=== PATIENT | female | born 1990 ===

== ENCOUNTER 2016-11-01 15:24 | Emergency (ER) | payer OTHER ==
[2016-11-01 15:34] VITALS: BP 135/88; PULSE 86; RESP 16; O2SAT 100
[2016-11-01] MEDS ORDERED: DiphenhydrAMINE 50 mg/ml Inj IVP STA (15:48)
[2016-11-01] MEDS ORDERED: Piperacillin/Tazobact 3.375 GM in Sodium Chloride 0.9% 100 ML IV STA (15:48)
--- NOTE | 2016-11-01 15:49 | ED PDOC ---
HPI: Allergic Reaction Time Seen by Provider: 11/01/16 15:31 Chief Complaint (Nursing): Allergic Reaction Chief Complaint (Provider): Facial swelling History Per: Patient Additional Complaint(s): Pt. complains of "possible infection to her face, started last Tuesday with swelling on her right lymph node, right eye is shut closed and with itching last night". Denies using anything different on the face. Past Medical History Reviewed: Nursing Documentation, Vital Signs Vital Signs: Last Vital Signs Temp 97.5 F L 11/01/16 15:29 Pulse 86 11/01/16 15:29 Resp 16 11/01/16 15:29 BP 135/88 11/01/16 15:29 Pulse Ox 100 11/01/16 15:29 - Medical History PMH: No Chronic Diseases - Surgical History Surgical History: No Surg Hx - Family History Family History: States: No Known Family Hx - Living Arrangements Living Arrangements: With Family - Social History Current smoker - smoking cessation education provided: No Alcohol: None Drugs: Denies - Home Medications Home Medications: Ambulatory Orders Medication Instructions Recorded Amoxicillin/Clavulanate [Augmentin 1 tab PO BID #14 tab 11/06/16 875 MG-125 MG] valACYclovir [Valtrex] 1 gm PO BID #14 tab 11/06/16 - Allergies Allergies/Adverse Reactions: Allergies Allergy/AdvReac Type Severity Reaction Status Date / Time No Known Allergies Allergy Verified 11/01/16 15:28 Review of Systems ROS Statement: Except As Marked, All Systems Reviewed And Found Negative Eyes: Positive for: Eyelid Inflammation, Redness Physical Exam - Reviewed Nursing Documentation Reviewed: Yes Vital Signs Reviewed: Yes - Physical Exam Appears: Positive for: Well, Non-toxic, No Acute Distress Head Exam: Positive for: ATRAUMATIC, NORMAL INSPECTION, NORMOCEPHALIC Skin: Positive for: Normal Color, Warm, DRY Eye Exam: Positive for: EOMI, PERRL, Other (Right upper eyelid with erythema and edema. (+) papule noted below eyebrow) ENT: Positive for: Normal ENT Inspection Neck: Positive for: Normal, Painless ROM Cardiovascular/Chest: Positive for: Regular Rate, Rhythm Respiratory: Positive for: CNT, Normal Breath Sounds Gastrointestinal/Abdominal: Positive for: Normal Exam, Bowel Sounds, Soft Back: Positive for: Normal Inspection Extremity: Positive for: Normal ROM Neurologic/Psych: Positive for: Alert, Oriented - Laboratory Results Result Diagrams: 11/01/16 18:10 11/01/16 17:48 - ECG O2 Sat by Pulse Oximetry: 100 - Progress ED Course And Treament: IV access established and treatment initiated with Benadryl, Solumedrol and Vanco/Zosyn labs resulted and reviewed with Pt who demonstrated full understanding Pts eye appears less swollen on re-eval. Stable for discharge with trial on outpt therapy at this time. advised to follow up with PMD, return to ED with any concerns. Disposition - Clinical Impression Clinical Impression: Allergic reaction, Cellulitis - Patient ED Disposition Is Patient to be Admitted: No - Disposition Disposition: Routine/Home Disposition Time: 16:45 Condition: STABLE Instructions: Cellulitis (ED), General Allergic Reaction (ED) Forms: [employer] ([place])
[2016-11-01] MEDS ORDERED: DiphenhydrAMINE 50 mg/ml Inj ONE (15:55)
[2016-11-01] MEDS ORDERED: Piperacillin/Tazobact 3.375 gm Inj IVPB ONE (15:56)
[2016-11-01] MEDS ORDERED: Vancomycin 1 g Inj ONE (15:56)
[2016-11-01 18:06] LABS: ALB/GLOB RATIO 1.4 (1.0-2.1); ALKALINE PHOSPHATASE 48 U/L (38-126); ALT/SGPT 23 U/L (9-52); AST/SGOT 17 U/L (14-36); BILIRUBIN,TOTAL 0.3 mg/dl (0.2-1.3); BLOOD UREA NITROGEN 8 mg/dl (7-17); CALCIUM 9.1 mg/dL (8.4-10.2); CARBON DIOXIDE 26 mmol/L (22-30); CHLORIDE 103 mmol/L (98-107); GFR AFRICAN-AMERICAN > 60; GLUCOSE,RANDOM 116 mg/dL (65-105); POTASSIUM 3.7 MMOL/L (3.6-5.0); SODIUM 138 mmol/l (132-148); TOTAL PROTEIN 6.6 G/DL (6.3-8.2)
[2016-11-01 19:05] LABS: BASO % 0.5 % (0.0-2.0); EOS # 0.1 K/uL (0.0-0.7); EOS % 1.9 % (0.0-4.0); HEMATOCRIT 36.1 % (34.0-47.0); LYMPH # 1.6 K/uL (1.0-4.3); LYMPH % 24.4 % (20.0-40.0); MEAN CELL VOLUME 95.2 fl (81.0-99.0); MEAN CORPUSCULAR HGB CONC 33.7 g/dL (33.0-37.0); MEAN PLATELET VOLUME 10.9 fl (7.2-11.7); MONO # 0.6 K/uL (0.0-0.8); NEUT # 4.2 K/uL (1.8-7.0); NEUT % 64.2 % (50.0-75.0); NRBC % 0.1 % (0.0-0.0); RED CELL DISTRIBUTION WIDTH 13.8 % (11.5-14.5); WHITE BLOOD COUNT 6.6 K/uL (4.8-10.8)
[2016-11-01 19:32] VITALS: TEMP 98.6
== END 2016-11-01 19:51 | disposition home or self-care (01) ==
LOC: H.ER 15:24
DX: T78.40XA Allergy, unspecified, initial encounter (principal); L03.90 Cellulitis, unspecified
CPT/HCPCS: 80053; 85025; 87040; 96374; 96375; 99282; J1200; J2543; J2930

== ENCOUNTER 2016-11-02 10:41 | Inpatient (IN) | payer OTHER ==
[2016-11-02] MEDS ORDERED: DiphenhydrAMINE 50 mg/ml Inj IV STA (11:30)
--- NOTE | 2016-11-02 11:43 | ED PDOC ---
HPI: Eye Injury/Pain Time Seen by Provider: 11/02/16 11:15 Chief Complaint (Nursing): Eye Problem Chief Complaint (Provider): Eye brow pain and swelling History Per: Patient History/Exam Limitations: no limitations Onset/Duration Of Symptoms: Days (Sat) Current Symptoms Are (Timing): Still Present Additional Complaint(s): Pt. pimple on eye lid right on Tuesday. It then got swollen to that area and around eye. No pain inside eye. Pain around swelling and itching. Pt. came to the ED yesterday for it and had blood work and antibiotics/steroids/ benadryl. Sent home on meds but did not start it yet. No numbness, tingles, weakness, dizziness, vision changes. Able to move eyes with no issues. No dizziness or headache. No neck pain. Past Medical History Reviewed: Nursing Documentation, Vital Signs Vital Signs: Last Vital Signs Temp 97 F L 11/02/16 11:00 Pulse 52 L 11/02/16 11:00 Resp 16 11/02/16 11:00 BP 132/82 11/02/16 11:00 Pulse Ox 99 11/02/16 11:00 - Medical History PMH: No Chronic Diseases - Surgical History Surgical History: No Surg Hx - Family History Family History: States: Unknown Family Hx - Living Arrangements Living Arrangements: With Family - Immunization History Hx Tetanus Toxoid Vaccination: No Hx Influenza Vaccination: No Hx Pneumococcal Vaccination: No - Home Medications Home Medications: Ambulatory Orders Medication Instructions Recorded No Known Home Med 11/02/16 - Allergies Allergies/Adverse Reactions: Allergies Allergy/AdvReac Type Severity Reaction Status Date / Time No Known Allergies Allergy Verified 11/01/16 15:28 Review of Systems ROS Statement: Except As Marked, All Systems Reviewed And Found Negative Eyes: Positive for: Pain, Eyelid Inflammation. Negative for: Vision Change, Conjunctivae Inflammation, Redness Skin: Positive for: Rash Physical Exam - Reviewed Nursing Documentation Reviewed: Yes Vital Signs Reviewed: Yes - Physical Exam Appears: Positive for: Non-toxic, No Acute Distress Head Exam: Positive for: ATRAUMATIC, NORMAL INSPECTION, NORMOCEPHALIC Skin: Positive for: Normal Color, Warm, DRY Eye Exam: Positive for: EOMI, PERRL, Periorbital swelling, Periorbital tenderness, Other (R eyebrow and R temporal area with fes vesicle and some crusting. Mild tender; Upper eye lid swelling. Trace erythema of R periorbital. R eye with no fluorescein uptake.) ENT: Positive for: Normal ENT Inspection Neck: Positive for: Normal, Painless ROM Cardiovascular/Chest: Positive for: Regular Rate, Rhythm Respiratory: Positive for: CNT, Normal Breath Sounds Gastrointestinal/Abdominal: Positive for: Normal Exam, Bowel Sounds, Soft. Negative for: Tenderness Back: Positive for: Normal Inspection. Negative for: L CVA Tenderness, R CVA Tenderness Extremity: Positive for: Normal ROM. Negative for: Tenderness, Pedal Edema Neurologic/Psych: Positive for: Alert, inspector watch train II-XII, Oriented. Negative for: Motor/Sensory Deficits, Facial Droop - Laboratory Results Result Diagrams: 11/02/16 12:20 11/02/16 12:20 Interpretation Of Abn Labs: no acute - ECG O2 Sat by Pulse Oximetry: 99 Pulse Ox Interpretation: Normal - Progress ED Course And Treament: IMPRESSION: 1. Right preseptal orbital cellulitis. No evidence of postseptal cellulitis for subperiosteal abscess. 2. Fluid in the frontal sinuses could represent acute sinusitis in the appropriate clinical setting. 3. Enlarged right lingual, submandibular, jugular chain and posterior triangle lymph nodes are likely reactive in etiology. 1535: Stable. AAOx3. Spoke with Skyler. Will admit. Antibacterial and antiviral given. Optho paged. Visual acuity done, not corrected, similar both sides. 1606: Stable. Spoke with Dr. Sanders. Made aware of presentation, clinical, and findings. Wants pt. to get acyclovir and antibiotics. No additional tx. Disposition - Clinical Impression Clinical Impression: Preseptal cellulitis, Herpes zoster - Patient ED Disposition Is Patient to be Admitted: Yes Counseled Patient/Family Regarding: Studies Performed, Diagnosis - Disposition Disposition Time: 15:52 Condition: FAIR - Pt Status Changed To: Hospital Disposition Of: Inpatient - Admit Certification Admit to Inpatient:: After my assessment, the patient will require hospitalization for at least two midnights. This is because of the severity of symptoms shown, intensity of services needed, and/or the medical risk in this patient being treated as an outpatient. - POA Present On Arrival: None
[2016-11-02] MEDS ORDERED: Tetracaine 0.5% Ophth 2 ML BOTTLE ONE (11:58)
[2016-11-02 12:32] LABS: VENOUS BLOOD GAS BASE EXCESS 0.5 mmol/L (0.0-2.0); VENOUS BLOOD GAS PCO2 44 mmHg (40-60); VENOUS BLOOD PH 7.38 (7.32-7.43)
[2016-11-02] MEDS ORDERED: DiphenhydrAMINE 50 mg/ml Inj ONE (12:33)
[2016-11-02 12:37] LABS: BASO % 0.7 % (0.0-2.0); EOS # 0.1 K/uL (0.0-0.7); HEMATOCRIT 38.4 % (34.0-47.0); LYMPH # 1.7 K/uL (1.0-4.3); LYMPH % 23.9 % (20.0-40.0); MEAN CORPUSCULAR HGB CONC 33.3 g/dL (33.0-37.0); MEAN PLATELET VOLUME 10.2 fl (7.2-11.7); MONO # 0.6 K/uL (0.0-0.8); MONO % 9.2 % (0.0-10.0); NEUT # 4.6 K/uL (1.8-7.0); NEUT % 65.2 % (50.0-75.0); NRBC % 0.1 % (0.0-0.0); RED CELL DISTRIBUTION WIDTH 14.1 % (11.5-14.5)
[2016-11-02 12:42] LABS: RBC URINE 6 /hpf (0-3); URINE BACTERIA RARE (<OCC); URINE BILIRUBIN NEGATIVE (NEGATIVE); URINE BLOOD MODERATE (NEGATIVE); URINE COLOR YELLOW (YELLOW); URINE GLUCOSE (UA) NEG (Normal); URINE KETONE NEGATIVE (NEGATIVE); URINE LEUKOCYTE ESTERASE NEG Leu/uL (Negative); URINE PROTEIN 30 mg/dL (NEGATIVE); URINE UROBILINOGEN 0.2-1.0 mg/dL (0.2-1.0); WBC URINE 4 /hpf (0-5)
[2016-11-02] MEDS: Sodium Chloride 0.9% 1,000 ML IV SCH (12:42)
[2016-11-02 12:57] LABS: ALB/GLOB RATIO 1.4 (1.0-2.1); ALKALINE PHOSPHATASE 52 U/L (38-126); ALT/SGPT 33 U/L (9-52); AST/SGOT 17 U/L (14-36); BILIRUBIN,TOTAL 0.3 mg/dl (0.2-1.3); BLOOD UREA NITROGEN 5 mg/dl (7-17); CALCIUM 9.1 mg/dL (8.4-10.2); CARBON DIOXIDE 23 mmol/L (22-30); CHLORIDE 106 mmol/L (98-107); GFR AFRICAN-AMERICAN > 60; GLUCOSE,RANDOM 88 mg/dL (65-105); PHOSPHOROUS 2.6 mg/dl (2.5-4.5); POTASSIUM 3.8 MMOL/L (3.6-5.0); SODIUM 139 mmol/l (132-148); TOTAL PROTEIN 6.9 G/DL (6.3-8.2)
[2016-11-02 13:02] LABS: PARTIAL THROMBOPLASTIN TIME 27.2 Seconds (25.6-37.1)
[2016-11-02] MEDS ORDERED: Sodium Chloride 0.9% 50 ML IV ONE (13:55)
[2016-11-02] MEDS ORDERED: Iohexol 300 100 ML IJ ONE (13:55)
--- NOTE | 2016-11-02 15:19 | CT ---
PROCEDURE: CT ORBITS WITH CONTRAST. HISTORY: Evaluate orbital cellulitis COMPARISON: None available. TECHNIQUE: Following administration of intravenous iodinated contrast, axial CT images of the orbits were obtained. Coronal and sagittal reformats were generated. Intravenous contrast dose: 95 mL Omnipaque 300 Radiation dose: Total exam DLP = 789.82 mGy-cm. This CT exam was performed using one or more of the following dose reduction techniques: Automated exposure control, adjustment of the mA and/or kV according to patient size, and/or use of iterative reconstruction technique. FINDINGS: RIGHT ORBIT: RIGHT BONY ORBIT: Normal. RIGHT INTRAORBITAL STRUCTURES: Globe: Normal. Extraocular muscles: Normal. Post septal space: There is no soft tissue in the postseptal space. There is no evidence of subperiosteal abscess. Optic Nerve: Normal. Lacrimal Apparatus: Normal. RIGHT PRESEPTAL SOFT TISSUES: There is moderate right preseptal soft tissue thickening. LEFT ORBIT: LEFT BONY ORBIT: Normal. LEFT INTRAORBITAL STRUCTURES: Globe: Normal. Extraocular muscles: Normal. Post septal space: Normal. Optic Nerve: Normal. Lacrimal Apparatus: Normal. LEFT PRESEPTAL SOFT TISSUES: Normal. OTHER: There is fluid in the inferior frontal sinuses and mild mucoperiosteal thickening in the ethmoid air cells. The maxillary and sphenoid sinuses are clear. There are enlarged right lingual, submandibular, upper jugular chain and posterior triangle lymph nodes. IMPRESSION: 1. Right preseptal orbital cellulitis. No evidence of postseptal cellulitis for subperiosteal abscess. 2. Fluid in the frontal sinuses could represent acute sinusitis in the appropriate clinical setting. 3. Enlarged right lingual, submandibular, jugular chain and posterior triangle lymph nodes are likely reactive in etiology.
[2016-11-02] MEDS ORDERED: Piperacillin/Tazobact 3.375 GM in Sodium Chloride 0.9% 100 ML IV STA (15:37)
[2016-11-02] MEDS ORDERED: Acyclovir 500 MG in Sodium Chloride 0.9% 100 ML IV STA (15:42)
[2016-11-02] MEDS ORDERED: Piperacillin/Tazobact 3.375 gm Inj IVPB ONE (16:12)
[2016-11-02] MEDS ORDERED: Vancomycin 1 g Inj ONE (16:12)
[2016-11-02] MEDS: Acyclovir 500 MG in Sodium Chloride 0.9% 100 ML IVPB SCH (18:35)
[2016-11-02] MEDS: Piperacillin/Tazobact 3.375 GM in Sodium Chloride 0.9% 100 ML IVPB SCH (21:19)
[2016-11-03] MEDS: Acyclovir 500 MG in Sodium Chloride 0.9% 100 ML IVPB SCH ×3 (01:14→18:27)
[2016-11-03] MEDS: Piperacillin/Tazobact 3.375 GM in Sodium Chloride 0.9% 100 ML IVPB SCH ×4 (04:28→21:22)
[2016-11-03 06:39] LABS: BASO % 0.1 % (0.0-2.0); HEMATOCRIT 35.4 % (34.0-47.0); LYMPH # 1.5 K/uL (1.0-4.3); LYMPH % 16.4 % (20.0-40.0); MEAN CELL VOLUME 94.9 fl (81.0-99.0); MEAN CORPUSCULAR HEMOGLOBIN 31.9 pg (27.0-31.0); MEAN CORPUSCULAR HGB CONC 33.6 g/dL (33.0-37.0); MEAN PLATELET VOLUME 10.7 fl (7.2-11.7); MONO # 0.5 K/uL (0.0-0.8); MONO % 6.1 % (0.0-10.0); NEUT # 6.9 K/uL (1.8-7.0); NEUT % 77.4 % (50.0-75.0); RED CELL DISTRIBUTION WIDTH 13.6 % (11.5-14.5); WHITE BLOOD COUNT 8.9 K/uL (4.8-10.8)
[2016-11-03 06:42] LABS: ALB/GLOB RATIO 1.2 (1.0-2.1); ALKALINE PHOSPHATASE 50 U/L (38-126); ALT/SGPT 31 U/L (9-52); AST/SGOT 21 U/L (14-36); BILIRUBIN,TOTAL 0.4 mg/dl (0.2-1.3); BLOOD UREA NITROGEN 5 mg/dl (7-17); CALCIUM 8.9 mg/dL (8.4-10.2); CARBON DIOXIDE 20 mmol/L (22-30); CHLORIDE 107 mmol/L (98-107); GFR AFRICAN-AMERICAN > 60; GLUCOSE,RANDOM 90 mg/dL (65-105); POTASSIUM 3.7 MMOL/L (3.6-5.0); SODIUM 138 mmol/l (132-148); TOTAL PROTEIN 6.4 G/DL (6.3-8.2)
--- NOTE | 2016-11-03 08:19 | CP.PCM.HP ---
History of Present Illness - History of Present Illness History of Present Illness: pt admitte dfor r eye preseptal cellulitis and possible herpes zoster to r eye. started 2 days ago had r eye swelling and pain. started on med at that time in ER but came abck w/ herpatic like lesions. no f/c, n/v/d. bw noted. had chicken pox as child. Present on Admission - Present on Admission Any Indicators Present on Admission: No Review of Systems - EENT Eyes: As Per HPI - Integumentary Integumentary: As Per HPI Past Patient History - Infectious Disease Hx of Infectious Diseases: None - Past Social History Smoking Status: Never Smoked - CARDIAC Hx Cardiac Disorders: No - PULMONARY Hx Respiratory Disorders: No - NEUROLOGICAL Hx Neurological Disorder: No - HEENT Hx HEENT Problems: No - RENAL Hx Chronic Kidney Disease: No - ENDOCRINE/METABOLIC Hx Endocrine Disorders: No - HEMATOLOGICAL/ONCOLOGICAL Hx Blood Disorders: No - INTEGUMENTARY Hx Dermatological Problems: No - MUSCULOSKELETAL/RHEUMATOLOGICAL Hx Musculoskeletal Disorders: No Hx Falls: No - GENITOURINARY/GYNECOLOGICAL Hx Genitourinary Disorders: No - PSYCHIATRIC Hx Psychophysiologic Disorder: No - SURGICAL HISTORY Hx Section: Yes Other/Comment: strep throat in 03/2016 - ANESTHESIA Hx Anesthesia: No Meds Allergies/Adverse Reactions: Allergies Allergy/AdvReac Type Severity Reaction Status Date / Time No Known Allergies Allergy Verified 11/01/16 15:28 Physical Exam - Constitutional Appears: Well, Non-toxic, No Acute Distress - Head Exam Head Exam: ATRAUMATIC, NORMAL INSPECTION, NORMOCEPHALIC - Eye Exam Eye Exam: EOMI, Normal appearance, PERRL Pupil Exam: NORMAL ACCOMODATION, PERRL Additional comments: r eye upper and lower swelling, herpatic lesion noted to the upper eyelid - ENT Exam ENT Exam: Mucous Membranes Moist, Normal Exam - Neck Exam Neck exam: Positive for: Normal Inspection - Respiratory Exam Respiratory Exam: Clear to Auscultation Bilateral, NORMAL BREATHING PATTERN - Cardiovascular Exam Cardiovascular Exam: REGULAR RHYTHM, RRR, +S1, +S2 - GI/Abdominal Exam GI & Abdominal Exam: Normal Bowel Sounds, Soft. absent: Tenderness - Extremities Exam Extremities exam: Positive for: full ROM, normal capillary refill, normal inspection, pedal pulses present - Back Exam Back exam: NORMAL INSPECTION - Neurological Exam Neurological exam: Alert, CN II-XII Intact, Normal Gait, Oriented x3, Reflexes Normal - Psychiatric Exam Psychiatric exam: Normal Affect, Normal Mood - Skin Skin Exam: Dry, Intact, Normal Color, Warm Results - Vital Signs Recent Vital Signs: Last Vital Signs Temp 99 F 11/03/16 00:47 Pulse 79 11/03/16 00:47 Resp 18 11/03/16 00:47 BP 118/65 11/03/16 00:47 Pulse Ox 99 11/03/16 00:47 - Labs Result Diagrams: 11/03/16 05:30 11/03/16 05:30 Labs: Laboratory Results - last 24 hr 11/03/16 11/03/16 05:30 05:30 WBC 8.9 RBC 3.73 L Hgb 11.9 L Hct 35.4 MCV 94.9 MCH 31.9 H MCHC 33.6 RDW 13.6 Plt Count 191 MPV 10.7 Neut % (Auto) 77.4 H Lymph % (Auto) 16.4 L [place] % (Auto) 6.1 Eos % (Auto) 0.0 Baso % (Auto) 0.1 Neut # 6.9 Lymph # 1.5 [place] # 0.5 Eos # 0.0 Baso # 0.0 Sodium 138 Potassium 3.7 Chloride 107 Carbon Dioxide 20 L Anion Gap 15 BUN 5 L Creatinine 0.5 L Est GFR ( Amer) > 60 Est GFR (Non-Af Amer) > 60 Random Glucose 90 Calcium 8.9 Total Bilirubin 0.4 AST 21 ALT 31 Alkaline Phosphatase 50 Total Protein 6.4 Albumin 3.6 Globulin 2.9 Albumin/Globulin Ratio 1.2 Assessment & Plan (1) DVT prophylaxis Assessment and Plan: scd rocio ehose ambulation Status: Acute (2) Herpes zoster Assessment and Plan: acyclovir opthalmology consult Status: Acute (3) Preseptal cellulitis Assessment and Plan: holley brannon opthalmology pain control fever control Status: Acute Decision To Admit - Pt Status Changed To: Hospital Disposition Of: Inpatient - Admit Certification Admit to Inpatient:: After my assessment, the patient will require hospitalization for at least two midnights. This is because of the severity of symptoms shown, intensity of services needed, and/or the medical risk in this patient being treated as an outpatient. - . Bed Request Type: Med/Surg Admitting Physician: Dominique Guardado
--- NOTE | 2016-11-03 14:04 | CP.PCM.CON ---
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 which started as a pimple on eyebrow and now has major preseptal orbital cellulitis as well as skin lesions which are vesicular on R eyebrow as well as new lesions on left eyebrow , trunk and left arm no PMH, Travel, hx or sig FH started on empiric IV Vanco/ zosyn and acyclovir Review of Systems - Review of Systems All systems: reviewed and no additional remarkable complaints except - Constitutional Constitutional: absent: As Per HPI, Anorexia, Chills, Daytime Sleepiness, Excessive Sweating, Fatigue, Fever, Frequent Falls, Headache, Increased Appetite , Lethargy, Malaise, Night Sweats, Snoring, Sleep Apnea, Weight Gain, Weight Loss, Weakness, Other - EENT Eyes: As Per HPI Ears: absent: As Per HPI, Decreased Hearing, Ear Discharge, Ear Pain, Tinnitus, Abnormal Hearing, Disequilibrium, Dizziness, Other Nose/Mouth/Throat: absent: As Per HPI, Epistaxis, Nasal Congestion, Nasal Discharge, Nasal Obstruction, Nasal Trauma, Nose Pain, Post Nasal Drip, Sinus Pain, Sinus Pressure, Bleeding Gums, Change in Voice, Dental Pain, Dry Mouth, Dysphagia, Halitosis, Hoarsness, Lip Swelling, Mouth Lesions, Mouth Pain, Odynophagia, Sore Throat, Throat Swelling, Tongue Swelling, Facial Pain, Neck Pain, Neck Mass, Other - Breasts Breasts: absent: As Per HPI, Change in Shape, Mass, Pain, Nipple Discharge, Nipple Inversion, Skin Changes, Swelling, Other - Cardiovascular Cardiovascular: absent: As Per HPI, Acrocyanosis, Chest Pain, Chest Pain at Rest , Chest Pain with Activity, Claudication, Diaphoresis, Dyspnea, Dyspnea on Exertion, Edema, Irregular Heart Rhythm, Pain Radiating to Arm/Neck/Jaw, Leg Edema, Leg Ulcers, Lightheadedness, Orthopnea, Palpitations, Paroxysmal Nocturnal Dyspnea, Pedal Edema, Radiating Pain, Rapid Heart Rate, Slow Heart Rate, Syncope, Other - Respiratory Respiratory: absent: As Per HPI, Cough, Dyspnea, Hemoptysis, Dyspnea on Exertion , Wheezing, Snoring, Stridor, Pain on Inspiration, Chest Congestion, Excessive Mucous Production, Change in Mucous Color, Pain with Coughing, Other - Gastrointestinal Gastrointestinal: absent: As Per HPI, Abdominal Pain, Belching, Bloating, Change in Bowel Habits, Change in Stool Character, Coffee Ground Emesis, Constipation, Cramping, Diarrhea, Dyspepsia, Dysphagia, Early Satiety, Excessive Flatus, Fecal Incontinence, Heartburn, Hematemesis, Hematochezia, Loose Stools, Melena, Nausea, Odynophagia, Temesmus, Vomiting, Other - Genitourinary Genitourinary: absent: As Per HPI, Change in Urinary Stream, Difficulty Urinating, Dysuria, Flank Pain, Hematuria, Pyuria, Nocturia, Urinary Incontinence, Urinary Frequency, Urinary Hesitance, Urinary Urgency, Voiding Freq/Small Amts, Freq UTI, Hx Renal/Bladder Calculi, Hx /Renal Surgery, Bladder Distension, Other - Reproductive: Female Reproductive:Female: absent: As Per HPI, Amenorrhea, Amenorrhea/ Control, Currently Menstual, Cycle <21 Days, Cycle >35 Days, Cycle Variable, Menses 1-7 Days, Menses >/= 8 Days, Menses Variable, Cycle > 4 Weeks Between, No Menses for 6 Months, Heavy Menses, Light Menses, Normal Menses, Spotting Between Cycles , S/P Hysterectomy, Menopausal, Post Menopausal, Premenarche, Abnormal Vaginal Bleeding, Dysmenorrhea, Dyspareunia, Genital Lesions, Genital Pruritis, Pelvic Pain, Prolapse Symptoms, Sexual Dysfunction, Vaginal Discharge, Vaginal Dryness , Vaginal Odor, Vaginal Pruritis, Other - Menstruation Menstruation: absent: As Per HPI, Amenorrhea, Amenorrhea/ Control, Currently Menstual, Cycle <21 Days, Cycle >35 Days, Cycle Variable, Menses 1-7 Days, Menses >/= 8 Days, Menses Variable, Cycle > 4 Weeks Between, No Menses for 6 Months, Heavy Menses, Light Menses, Normal Menses, Spotting Between Cycles , S/P Hysterectomy, Menopausal, Post Menopausal, Premenarche, Abnormal Vaginal Bleeding, Dysmenorrhea, Other - Musculoskeletal Musculoskeletal: absent: As Per HPI, Abnormal Gait, Arthralgias, Atrophy, Back Pain, Deformity, Joint Swelling, Limited Range of Motion, Loss of Height, Muscle Cramps, Muscle Weakness, Myalgias, Neck Pain, Numbness, Radiating Pain into Limb, Stiffness, Tingling, Other - Integumentary Integumentary: As Per HPI Past Patient History - Infectious Disease Hx of Infectious Diseases: None - Past Social History Smoking Status: Never Smoked - CARDIAC Hx Cardiac Disorders: No - PULMONARY Hx Respiratory Disorders: No - NEUROLOGICAL Hx Neurological Disorder: No - HEENT Hx HEENT Problems: No - RENAL Hx Chronic Kidney Disease: No - ENDOCRINE/METABOLIC Hx Endocrine Disorders: No - HEMATOLOGICAL/ONCOLOGICAL Hx Blood Disorders: No - INTEGUMENTARY Hx Dermatological Problems: No - MUSCULOSKELETAL/RHEUMATOLOGICAL Hx Musculoskeletal Disorders: No Hx Falls: No - GENITOURINARY/GYNECOLOGICAL Hx Genitourinary Disorders: No - PSYCHIATRIC Hx Psychophysiologic Disorder: No - SURGICAL HISTORY Hx Section: Yes Other/Comment: strep throat in 03/2016 - ANESTHESIA Hx Anesthesia: No Meds Allergies/Adverse Reactions: Allergies Allergy/AdvReac Type Severity Reaction Status Date / Time No Known Allergies Allergy Verified 11/01/16 15:28 - Medications Medications: Current Medications Diphenhydramine HCl (Benadryl) 50 mg IVP Q6 PRN PRN Reason: itchines Sodium Chloride (Sodium Chloride 0.9%) 1,000 mls @ 1,000 mls/hr IV .Q1H [facility] Last Admin: 11/02/16 12:42 Dose: 1,000 mls/hr Vancomycin HCl 1 gm/ Sodium (Chloride) 250 mls @ 166.667 mls/hr IVPB Q12@0400, 1600 [facility] Last Admin: 11/03/16 04:29 Dose: 166.667 mls/hr Piperacillin Sod/Tazobactam (Sod 3.375 gm/ Sodium Chloride) 100 mls @ 100 mls/ hr IVPB Q6 [facility] Last Admin: 11/03/16 09:59 Dose: 100 mls/hr Acyclovir 500 mg/ Sodium (Chloride) 100 mls @ 100 mls/hr IVPB Q8 [facility] Last Admin: 11/03/16 12:00 Dose: 100 mls/hr Ketorolac Tromethamine (Toradol) 30 mg IVP Q6 PRN PRN Reason: pain 6-10 Last Admin: 11/02/16 18:35 Dose: 30 mg Neomycin/Polymyxin/Dexamethasone (Maxitrol Opth Oint) 1 applic OD QID [facility] Physical Exam - Constitutional Appears: Non-toxic - Head Exam Head Exam: NORMOCEPHALIC - Eye Exam Eye Exam: Periorbital swelling Pupil Exam: PERRL Additional comments: massive swelling upper eyelids bilat vesicles near right eyebrow and one near left - ENT Exam ENT Exam: Mucous Membranes Dry, Normal External Ear Exam - Neck Exam Neck exam: Negative for: Lymphadenopathy - Respiratory Exam Respiratory Exam: Decreased Breath Sounds - Cardiovascular Exam Cardiovascular Exam: REGULAR RHYTHM - GI/Abdominal Exam GI & Abdominal Exam: Diminished Bowel Sounds, Soft - Rectal Exam Rectal Exam: Deferred - Exam Exam: NORMAL INSPECTION - Extremities Exam Extremities exam: Negative for: pedal edema - Back Exam Back exam: absent: CVA tenderness (L), CVA tenderness (R) - Neurological Exam Neurological exam: Alert, CN II-XII Intact, Oriented x3, Reflexes Normal - Psychiatric Exam Psychiatric exam: Normal Mood - Skin Skin Exam: Rash Results - Vital Signs Recent Vital Signs: Last Vital Signs Temp 98.4 F 11/03/16 08:29 Pulse 66 11/03/16 08:29 Resp 20 11/03/16 08:29 BP 118/70 11/03/16 08:29 Pulse Ox 99 11/03/16 08:29 - Labs Result Diagrams: 11/03/16 05:30 11/03/16 05:30 Labs: Laboratory Results - last 24 hr 11/03/16 11/03/16 05:30 05:30 WBC 8.9 RBC 3.73 L Hgb 11.9 L Hct 35.4 MCV 94.9 MCH 31.9 H MCHC 33.6 RDW 13.6 Plt Count 191 MPV 10.7 Neut % (Auto) 77.4 H Lymph % (Auto) 16.[address] [place] % (Auto) 6.1 Eos % (Auto) 0.0 Baso % (Auto) 0.1 Neut # 6.9 Lymph # 1.5 [place] # 0.5 Eos # 0.0 Baso # 0.0 Sodium 138 Potassium 3.7 Chloride 107 Carbon Dioxide 20 L Anion Gap 15 BUN 5 L Creatinine 0.5 L Est GFR ( Amer) > 60 Est GFR (Non-Af Amer) > 60 Random Glucose 90 Calcium 8.9 Total Bilirubin 0.4 AST 21 ALT 31 Alkaline Phosphatase 50 Total Protein 6.4 Albumin 3.6 Globulin 2.9 Albumin/Globulin Ratio 1.2 Assessment & Plan (1) Herpes zoster Status: Acute (2) Preseptal cellulitis Status: Acute (3) Cellulitis Status: Acute - Assessment and Plan (Free Text) Assessment: r/o disseminated VZV, HSV less likely will send viral cultures consider skin biopsy, immunological work up
[2016-11-03] MEDS: DiphenhydrAMINE 50 mg/ml Inj IVP PRN (20:20)
[2016-11-03] MEDS: Sodium Chloride 0.9% 1,000 ML IV SCH (21:19)
[2016-11-04] MEDS: Acyclovir 500 MG in Sodium Chloride 0.9% 100 ML IVPB SCH ×3 (00:19→16:02)
[2016-11-04] MEDS: Piperacillin/Tazobact 3.375 GM in Sodium Chloride 0.9% 100 ML IVPB SCH ×4 (03:34→22:34)
[2016-11-04 06:09] LABS: HEMATOCRIT 35.9 % (34.0-47.0); MEAN CELL VOLUME 95.8 fl (81.0-99.0); MEAN CORPUSCULAR HEMOGLOBIN 32.1 pg (27.0-31.0); MEAN CORPUSCULAR HGB CONC 33.5 g/dL (33.0-37.0); RED CELL DISTRIBUTION WIDTH 14.2 % (11.5-14.5); WHITE BLOOD COUNT 7.1 K/uL (4.8-10.8)
[2016-11-04 06:12] LABS: BLOOD UREA NITROGEN 5 mg/dl (7-17); CALCIUM 8.7 mg/dL (8.4-10.2); CARBON DIOXIDE 26 mmol/L (22-30); CHLORIDE 103 mmol/L (98-107); GFR AFRICAN-AMERICAN > 60; GLUCOSE,RANDOM 80 mg/dL (65-105); POTASSIUM 3.8 MMOL/L (3.6-5.0); SODIUM 138 mmol/l (132-148)
--- NOTE | 2016-11-04 08:37 | CP.PCM.PN ---
Subjective - Date & Time of Evaluation Date of Evaluation: 11/04/16 Time of Evaluation: 08:35 - Subjective Subjective: still w/ r eye swelling, lesions remain. new lesions to top of head, left neck/ shoulder and back. no fc, n/v/d. no other compalitns. bw noted. consults appriciated. Objective - Vital Signs/Intake and Output Vital Signs (last 24 hours): Temp Pulse Resp BP Pulse Ox 98.4 F 71 18 125/79 100 11/04/16 07:45 11/04/16 07:45 11/04/16 07:45 11/04/16 07:45 11/04/16 07:45 - Medications Medications: Current Medications Diphenhydramine HCl (Benadryl) 50 mg IVP Q6 PRN PRN Reason: itchines Last Admin: 11/03/16 20:20 Dose: 50 mg Sodium Chloride (Sodium Chloride 0.9%) 1,000 mls @ 1,000 mls/hr IV .Q1H [facility] Last Admin: 11/03/16 21:19 Dose: Not Given Vancomycin HCl 1 gm/ Sodium (Chloride) 250 mls @ 166.667 mls/hr IVPB Q12@0400, 1600 [facility] Last Admin: 11/04/16 03:35 Dose: 166.667 mls/hr Piperacillin Sod/Tazobactam (Sod 3.375 gm/ Sodium Chloride) 100 mls @ 100 mls/ hr IVPB Q6 [facility] Last Admin: 11/04/16 03:34 Dose: 100 mls/hr Acyclovir 500 mg/ Sodium (Chloride) 100 mls @ 100 mls/hr IVPB Q8 [facility] Last Admin: 11/04/16 00:19 Dose: 100 mls/hr Ketorolac Tromethamine (Toradol) 30 mg IVP Q6 PRN PRN Reason: pain 6-10 Last Admin: 11/04/16 00:24 Dose: 30 mg Neomycin/Polymyxin/Dexamethasone (Maxitrol Opth Oint) 1 applic OD QID [facility] Last Admin: 11/03/16 21:23 Dose: 1 unit - Labs Labs: 11/04/16 05:05 11/04/16 05:05 PT 11.0 Seconds (9.8-13.1) 11/02/16 12:20 INR 1.1 (0.9-1.2) 11/02/16 12:20 APTT 27.2 Seconds (25.6-37.1) 11/02/16 12:20 Assessment and Plan (1) DVT prophylaxis Status: Acute (2) Herpes zoster Status: Acute (3) Preseptal cellulitis Status: Acute - Assessment and Plan (Free Text) Assessment: (1) DVT prophylaxis Assessment and Plan: scd rocio ehose ambulation Status: Acute (2) Herpes zoster-pcr pending Assessment and Plan: acyclovir opthalmology consult ID Status: Acute (3) Preseptal cellulitis Assessment and Plan: holley brannon opthalmology pain control fever control ID ?? etiology, maybe insect bite in origin wound care Status: Acute ?? adult chicken pox
--- NOTE | 2016-11-04 08:55 | CON ---
I was called to see the patient for swelling of the right eye for 2 days duration. She has had swelling of the eye for 2 days. On physical examination, she had erythema of the right upper lid and right lower lid. There were several small blisters above the right lid and above the left lid. Corneal exam is normal. Lens exam is normal. Pupillary exam is normal. ASSESSMENT: My assessment is that the patient has cellulitis, etiology unknown. I do not feel that it is a herpes zoster because herpes zoster was respect to midline and this appears to be in both eyes. I put her on Maxitrol ophthalmic ointment one application to the lesions 3 times a day and I recommended an infectious disease consult. Tato Sanders MD
[2016-11-04] MEDS: DiphenhydrAMINE 50 mg/ml Inj IVP PRN (15:52)
[2016-11-04 16:30] LABS: VARICELLA-ZOSTER AB (IGG) >4000.00 index
[2016-11-05] MEDS: Acyclovir 500 MG in Sodium Chloride 0.9% 100 ML IVPB SCH ×3 (00:59→16:12)
[2016-11-05] MEDS: Piperacillin/Tazobact 3.375 GM in Sodium Chloride 0.9% 100 ML IVPB SCH ×4 (04:14→21:34)
[2016-11-05 07:44] LABS: BASO % 0.4 % (0.0-2.0); EOS # 0.2 K/uL (0.0-0.7); EOS % 2.2 % (0.0-4.0); HEMATOCRIT 38.3 % (34.0-47.0); LYMPH # 2.6 K/uL (1.0-4.3); LYMPH % 36.6 % (20.0-40.0); MEAN CELL VOLUME 94.3 fl (81.0-99.0); MEAN CORPUSCULAR HEMOGLOBIN 31.8 pg (27.0-31.0); MEAN CORPUSCULAR HGB CONC 33.7 g/dL (33.0-37.0); MEAN PLATELET VOLUME 10.1 fl (7.2-11.7); MONO # 0.6 K/uL (0.0-0.8); MONO % 8.5 % (0.0-10.0); NEUT # 3.8 K/uL (1.8-7.0); NEUT % 52.3 % (50.0-75.0); NRBC % 0.1 % (0.0-0.0); RED CELL DISTRIBUTION WIDTH 13.7 % (11.5-14.5); WHITE BLOOD COUNT 7.2 K/uL (4.8-10.8)
[2016-11-05 07:57] LABS: ALB/GLOB RATIO 1.3 (1.0-2.1); ALKALINE PHOSPHATASE 47 U/L (38-126); ALT/SGPT 50 U/L (9-52); AST/SGOT 33 U/L (14-36); BILIRUBIN,TOTAL 0.4 mg/dl (0.2-1.3); BLOOD UREA NITROGEN 7 mg/dl (7-17); CALCIUM 8.8 mg/dL (8.4-10.2); CARBON DIOXIDE 25 mmol/L (22-30); CHLORIDE 105 mmol/L (98-107); GFR AFRICAN-AMERICAN > 60; GLUCOSE,RANDOM 86 mg/dL (65-105); POTASSIUM 3.6 MMOL/L (3.6-5.0); SODIUM 140 mmol/l (132-148); TOTAL PROTEIN 6.5 G/DL (6.3-8.2)
--- NOTE | 2016-11-05 09:35 | CP.PCM.PN ---
Subjective - Date & Time of Evaluation Date of Evaluation: 11/05/16 Time of Evaluation: 09:35 - Subjective Subjective: doing well, marked improvement of swelling to r eye, lesions drying and crusting. no f/c, nv//d pending pcr/id clearance for dc Objective - Vital Signs/Intake and Output Vital Signs (last 24 hours): Temp Pulse Resp BP Pulse Ox 98.2 F 74 20 116/72 97 11/05/16 08:29 11/05/16 08:29 11/05/16 08:29 11/05/16 08:29 11/05/16 08:29 - Medications Medications: Current Medications Diphenhydramine HCl (Benadryl) 50 mg IVP Q6 PRN PRN Reason: itchines Last Admin: 11/04/16 15:52 Dose: 50 mg Vancomycin HCl 1 gm/ Sodium (Chloride) 250 mls @ 166.667 mls/hr IVPB Q12@0400, 1600 [facility] Last Admin: 11/05/16 04:16 Dose: 166.667 mls/hr Piperacillin Sod/Tazobactam (Sod 3.375 gm/ Sodium Chloride) 100 mls @ 100 mls/ hr IVPB Q6 [facility] Last Admin: 11/05/16 08:59 Dose: 100 mls/hr Acyclovir 500 mg/ Sodium (Chloride) 100 mls @ 100 mls/hr IVPB Q8 [facility] Last Admin: 11/05/16 08:59 Dose: 100 mls/hr Ketorolac Tromethamine (Toradol) 30 mg IVP Q6 PRN PRN Reason: pain 6-10 Last Admin: 11/04/16 18:17 Dose: 30 mg Neomycin/Polymyxin/Dexamethasone (Maxitrol Opth Oint) 1 applic OD QID [facility] Last Admin: 11/05/16 09:00 Dose: 1 unit - Labs Labs: 11/05/16 07:00 11/05/16 07:00 PT 11.0 Seconds (9.8-13.1) 11/02/16 12:20 INR 1.1 (0.9-1.2) 11/02/16 12:20 APTT 27.2 Seconds (25.6-37.1) 11/02/16 12:20 - Constitutional Appears: Well, Non-toxic, No Acute Distress - Head Exam Head Exam: ATRAUMATIC, NORMAL INSPECTION, NORMOCEPHALIC - Eye Exam Eye Exam: EOMI, Normal appearance, PERRL Pupil Exam: NORMAL ACCOMODATION, PERRL Additional comments: left eye swelling markedly improved - ENT Exam ENT Exam: Mucous Membranes Moist, Normal Exam - Neck Exam Neck Exam: Full ROM, Normal Inspection. absent: Lymphadenopathy - Respiratory Exam Respiratory Exam: Clear to Ausculation Bilateral, NORMAL BREATHING PATTERN - Cardiovascular Exam Cardiovascular Exam: REGULAR RHYTHM, RRR, +S1, +S2. absent: Murmur - GI/Abdominal Exam GI & Abdominal Exam: Soft, Normal Bowel Sounds. absent: Tenderness - Extremities Exam Extremities Exam: Full ROM, Normal Capillary Refill, Normal Inspection. absent : Joint Swelling, Pedal Edema - Back Exam Back Exam: NORMAL INSPECTION - Neurological Exam Neurological Exam: Alert, Awake, CN II-XII Intact, Normal Gait, Oriented x3 - Psychiatric Exam Psychiatric exam: Normal Affect, Normal Mood - Skin Skin Exam: Dry, Intact, Normal Color, Warm Assessment and Plan (1) DVT prophylaxis Status: Acute (2) Herpes zoster Status: Acute (3) Preseptal cellulitis Status: Acute - Assessment and Plan (Free Text) Assessment: (1) DVT prophylaxis Assessment and Plan: scd rocio ehose ambulation Status: Acute (2) Herpes zoster-pcr pending Assessment and Plan: acyclovir opthalmology consult ID Status: Acute (3) Preseptal cellulitis Assessment and Plan: holley brannon opthalmology pain control fever control ID ?? etiology, maybe insect bite in origin wound care Status: Acute ?? adult chicken pox
--- NOTE | 2016-11-05 12:40 | CP.PCM.PN ---
Subjective - Date & Time of Evaluation Date of Evaluation: 11/05/16 Time of Evaluation: 09:00 - Subjective Subjective: improving no new lesions Objective - Vital Signs/Intake and Output Vital Signs (last 24 hours): Temp Pulse Resp BP Pulse Ox 98.2 F 74 20 116/72 97 11/05/16 08:29 11/05/16 08:29 11/05/16 08:29 11/05/16 08:29 11/05/16 08:29 - Medications Medications: Current Medications Diphenhydramine HCl (Benadryl) 50 mg IVP Q6 PRN PRN Reason: itchines Last Admin: 11/04/16 15:52 Dose: 50 mg Vancomycin HCl 1 gm/ Sodium (Chloride) 250 mls @ 166.667 mls/hr IVPB Q12@0400, 1600 [facility] Last Admin: 11/05/16 04:16 Dose: 166.667 mls/hr Piperacillin Sod/Tazobactam (Sod 3.375 gm/ Sodium Chloride) 100 mls @ 100 mls/ hr IVPB Q6 [facility] Last Admin: 11/05/16 08:59 Dose: 100 mls/hr Acyclovir 500 mg/ Sodium (Chloride) 100 mls @ 100 mls/hr IVPB Q8 [facility] Last Admin: 11/05/16 08:59 Dose: 100 mls/hr Ketorolac Tromethamine (Toradol) 30 mg IVP Q6 PRN PRN Reason: pain 6-10 Last Admin: 11/04/16 18:17 Dose: 30 mg Neomycin/Polymyxin/Dexamethasone (Maxitrol Opth Oint) 1 applic OD QID [facility] Last Admin: 11/05/16 09:00 Dose: 1 unit - Labs Labs: 11/05/16 07:00 11/05/16 07:00 PT 11.0 Seconds (9.8-13.1) 11/02/16 12:20 INR 1.1 (0.9-1.2) 11/02/16 12:20 APTT 27.2 Seconds (25.6-37.1) 11/02/16 12:20 - Constitutional Appears: Non-toxic - Head Exam Head Exam: NORMOCEPHALIC - Eye Exam Eye Exam: absent: Scleral icterus - ENT Exam ENT Exam: Mucous Membranes Dry - Neck Exam Neck Exam: absent: Lymphadenopathy - Respiratory Exam Respiratory Exam: Decreased Breath Sounds - Cardiovascular Exam Cardiovascular Exam: REGULAR RHYTHM - GI/Abdominal Exam GI & Abdominal Exam: Soft Assessment and Plan (1) Herpes zoster Status: Acute (2) Preseptal cellulitis Status: Acute (3) Cellulitis Status: Acute - Assessment and Plan (Free Text) Assessment: cont iv rx for now
[2016-11-05 14:42] LABS: VARICELLA-ZOSTER AB (IGM) 1.75 (<=0.90)
[2016-11-06] MEDS: Acyclovir 500 MG in Sodium Chloride 0.9% 100 ML IVPB SCH ×2 (00:42→08:29)
[2016-11-06] MEDS: Piperacillin/Tazobact 3.375 GM in Sodium Chloride 0.9% 100 ML IVPB SCH (03:37)
[2016-11-06 07:48] VITALS: BP 127/82; PULSE 73; RESP 18; TEMP 98.2; O2SAT 98
--- NOTE | 2016-11-06 08:41 | CP.PCM.DIS ---
Provider - Provider Date of Admission: 11/02/16 15:47 Attending physician: Dominique Guardado MD Time Spent in preparation of Discharge (in minutes): 15 Diagnosis - Discharge Diagnosis (1) DVT prophylaxis Status: Acute (2) Herpes zoster Status: Acute (3) Preseptal cellulitis Status: Acute Hospital Course - Lab Results Lab Results: Micro Results 11/03/16 15:28 Blood Blood Culture - Preliminary NO GROWTH AFTER 48 HOURS Most Recent Lab Values WBC 7.2 K/uL (4.8-10.8) 11/05/16 07:00 RBC 4.06 Mil/uL (3.80-5.20) 11/05/16 07:00 Hgb 12.9 g/dL (12.0-16.0) 11/05/16 07:00 Hct 38.3 % (34.0-47.0) 11/05/16 07:00 MCV 94.3 fl (81.0-99.0) 11/05/16 07:00 MCH 31.8 pg (27.0-31.0) H 11/05/16 07:00 MCHC 33.7 g/dL (33.0-37.0) 11/05/16 07:00 RDW 13.7 % (11.5-14.5) 11/05/16 07:00 Plt Count 214 K/uL (130-400) 11/05/16 07:00 MPV 10.1 fl (7.2-11.7) 11/05/16 07:00 Neut % (Auto) 52.3 % (50.0-75.0) 11/05/16 07:00 Lymph % (Auto) 36.6 % (20.0-40.0) 11/05/16 07:00 Yancey % (Auto) 8.5 % (0.0-10.0) 11/05/16 07:00 Eos % (Auto) 2.2 % (0.0-4.0) 11/05/16 07:00 Baso % (Auto) 0.4 % (0.0-2.0) 11/05/16 07:00 Neut # 3.8 K/uL (1.8-7.0) 11/05/16 07:00 Lymph # 2.6 K/uL (1.0-4.3) 11/05/16 07:00 Yancey # 0.6 K/uL (0.0-0.8) 11/05/16 07:00 Eos # 0.2 K/uL (0.0-0.7) 11/05/16 07:00 Baso # 0.0 K/uL (0.0-0.2) 11/05/16 07:00 PT 11.0 Seconds (9.8-13.1) 11/02/16 12:20 INR 1.1 (0.9-1.2) 11/02/16 12:20 APTT 27.2 Seconds (25.6-37.1) 11/02/16 12:20 pO2 30 mm/Hg (30-55) 11/02/16 12:20 VBG pH 7.38 (7.32-7.43) 11/02/16 12:20 VBG pCO2 44 mmHg (40-60) 11/02/16 12:20 VBG HCO3 24.2 mmol/L 11/02/16 12:20 VBG Total CO2 27.4 mmol/L (22-28) 11/02/16 12:20 VBG O2 Sat (Calc) 62.0 % (40-65) 11/02/16 12:20 VBG Base Excess 0.5 mmol/L (0.0-2.0) 11/02/16 12:20 VBG Potassium 3.7 mmol/L (3.6-5.2) 11/02/16 12:20 Sodium 137.0 mmol/L (132-148) 11/02/16 12:20 Chloride 104.0 mmol/L (98-107) 11/02/16 12:20 Glucose 86 mg/dL (65-105) 11/02/16 12:20 Lactate 1.3 mmol/L (0.7-2.1) 11/02/16 12:20 FiO2 21.0 % 11/02/16 12:20 Sodium 140 mmol/l (132-148) 11/05/16 07:00 Potassium 3.6 MMOL/L (3.6-5.0) 11/05/16 07:00 Chloride 105 mmol/L (98-107) 11/05/16 07:00 Carbon Dioxide 25 mmol/L (22-30) 11/05/16 07:00 Anion Gap 13 (10-20) 11/05/16 07:00 BUN 7 mg/dl (7-17) 11/05/16 07:00 Creatinine 0.7 mg/dL (0.7-1.2) 11/05/16 07:00 Est GFR ( Amer) > 60 11/05/16 07:00 Est GFR (Non-Af Amer) > 60 11/05/16 07:00 Random Glucose 86 mg/dL (65-105) 11/05/16 07:00 Calcium 8.8 mg/dL (8.4-10.2) 11/05/16 07:00 Phosphorus 2.6 mg/dl (2.5-4.5) 11/02/16 12:20 Magnesium 2.0 MG/DL (1.6-2.3) 11/02/16 12:20 Total Bilirubin 0.4 mg/dl (0.2-1.3) 11/05/16 07:00 AST 33 U/L (14-36) 11/05/16 07:00 ALT 50 U/L (9-52) 11/05/16 07:00 Alkaline Phosphatase 47 U/L (38-126) 11/05/16 07:00 Total Protein 6.5 G/DL (6.3-8.2) 11/05/16 07:00 Albumin 3.7 g/dL (3.5-5.0) 11/05/16 07:00 Globulin 2.9 gm/dL (2.2-3.9) 11/05/16 07:00 Albumin/Globulin Ratio 1.3 (1.0-2.1) 11/05/16 07:00 Venous Blood Potassium 3.7 mmol/L (3.6-5.2) 11/02/16 12:20 Urine Color Yellow (YELLOW) 11/02/16 12:20 Urine Clarity Cloudy (Clear) 11/02/16 12:20 Urine pH 6.0 (5.0-8.0) 11/02/16 12:20 Ur Specific Dorothy 1.024 (1.003-1.030) 11/02/16 12:20 Urine Protein 30 mg/dL (NEGATIVE) 11/02/16 12:20 Urine Glucose (UA) Neg mg/dL (Normal) 11/02/16 12:20 Urine Ketones Negative mg/dL (NEGATIVE) 11/02/16 12:20 Urine Blood Moderate (NEGATIVE) 11/02/16 12:20 Urine Nitrate Negative (NEGATIVE) 11/02/16 12:20 Urine Bilirubin Negative (NEGATIVE) 11/02/16 12:20 Urine Urobilinogen 0.2-1.0 mg/dL (0.2-1.0) 11/02/16 12:20 Ur Leukocyte Esterase Neg Arie/uL (Negative) 11/02/16 12:20 Urine RBC (Auto) 6 /hpf (0-3) H 11/02/16 12:20 Urine Microscopic WBC 4 /hpf (0-5) 11/02/16 12:20 Ur Squamous Epith Cells 1 /hpf (0-5) 11/02/16 12:20 Urine Bacteria Rare (<OCC) 11/02/16 12:20 Hyaline Casts 0-2 /hpf (0-2) 11/02/16 12:20 Absolute Lymphs (Flow) 3240 Cells/mcL (850-3900) 11/03/16 15:28 % CD4 Cells 55 Percent (30-61) 11/03/16 15:28 Absolute CD4 Count 1796 Cells/mcL (490-1740) H 11/03/16 15:28 T-Help/Suppress Ratio 2.53 Ratio (0.86-5.00) 11/03/16 15:28 % CD8 Cells 22 Percent (12-42) 11/03/16 15:28 Absolute CD8 Count 710 Cells/mcL (180-1170) 11/03/16 15:28 HIV 1&2 Antibody Screen Negative (NEGATIVE) 11/03/16 15:28 VZV IgG Antibody >4000.00 index 11/03/16 14:30 VZV IgM Antibody 1.75 (<=0.90) H 11/03/16 14:30 Discharge Exam - Head Exam Head Exam: ATRAUMATIC, NORMAL INSPECTION, NORMOCEPHALIC - Eye Exam Eye Exam: EOMI, Normal appearance, PERRL Pupil Exam: NORMAL ACCOMODATION, PERRL Additional comments: scabbed lesions r eye, minimal swelling - Respiratory Exam Respiratory Exam: Clear to PA & Lateral, NORMAL BREATHING PATTERN, UNREMARKABLE - Cardiovascular Exam Cardiovascular Exam: REGULAR RHYTHM, RRR, +S1, +S2 - GI/Abdominal Exam GI & Abdominal Exam: Normal Bowel Sounds - Extremities Exam Extremities exam: full ROM, normal capillary refill, normal inspection, pedal pulses present - Back Exam Back exam: FULL ROM - Neurological Exam Neurological exam: Alert, CN II-XII Intact, Normal Gait, Oriented x3, Reflexes Normal - Psychiatric Exam Psychiatric exam: Normal Affect, Normal Mood - Skin Skin Exam: Dry, Intact, Normal Color, Warm Discharge Plan - Discharge Medications Prescriptions: Amoxicillin/Clavulanate [Augmentin 875 MG-125 MG] 1 tab PO BID #14 tab valACYclovir [Valtrex] 1 gm PO BID #14 tab - Follow Up Plan Condition: FAIR Disposition: HOME/ ROUTINE Instructions: Shingles (GEN), Cellulitis (GEN), How To Wash Your Hands (GEN) Additional Instructions: final dx-vzv, r eye preseptal cellulitis cleared by dr sosa for dc today doing well, no complaitns. no f/c, n/v/d f/u mondya, rted prn, meds pe rmed rec Referrals: Tato Sanders MD [Staff Provider] -
== END 2016-11-06 09:45 | disposition home or self-care (01) | DRG 278 ==
LOC: H.ER 10:41 → H.ERHOLD 15:47 → H.MEDSURG1 16:50
PROVIDERS: ADMIT Family Medicine; ATTEND Family Medicine
DX: L03.213 Periorbital cellulitis (principal); B02.9 Zoster without complications

== ENCOUNTER 2017-11-10 13:51 | Emergency (ER) | payer MEDICAID, OTHER ==
[2017-11-10 13:54] VITALS: BMI 22.8
[2017-11-10] MEDS ORDERED: Dexamethasone 4 mg/1 ml IM STA (14:06)
--- NOTE | 2017-11-10 14:09 | ED PDOC ---
HPI: CCC, URI, Sore Throat Time Seen by Provider: 11/10/17 14:00 Chief Complaint (Nursing): ENT Problem Chief Complaint (Provider): sore throat History Per: Patient History/Exam Limitations: no limitations Onset/Duration Of Symptoms: Days (x3) Associated Symptoms: Sore Throat Ear Symptoms: Left: Ear Pain Additional Complaint(s): Patient is a 27 y/o female with no significant past medical history who presents to the ED complaining of sore throat and b/l ear pain for the past 3 days. Patient reports she took Motrin prior to ED arrival which helped with throat pain. PMD: Roverto Salmeron Past Medical History Reviewed: Historical Data, Nursing Documentation, Vital Signs Vital Signs: Last Vital Signs Temp 98.6 F 11/10/17 13:54 Pulse 96 H 11/10/17 13:54 Resp 17 11/10/17 13:54 BP 135/92 H 11/10/17 13:54 Pulse Ox 99 11/10/17 14:12 - Medical History PMH: No Chronic Diseases - Surgical History Surgical History: - Family History Family History: States: No Known Family Hx - Living Arrangements Living Arrangements: With Family - Social History Current smoker - smoking cessation education provided: No Alcohol: Occasional Drugs: Denies - Home Medications Home Medications: Ambulatory Orders Medication Instructions Recorded Amoxicillin/Clavulanate [Augmentin 1 tab PO BID #14 tab 11/06/16 875 MG-125 MG] valACYclovir [Valtrex] 1 gm PO BID #14 tab 11/06/16 Amoxicillin 875 mg PO BID #14 tab 11/10/17 Fluconazole [Diflucan] 150 mg PO ONCE #1 tab 11/10/17 Prednisone 50 mg PO DAILY #5 tablet 11/10/17 - Allergies Allergies/Adverse Reactions: Allergies Allergy/AdvReac Type Severity Reaction Status Date / Time No Known Allergies Allergy Verified 11/01/16 15:28 Review of Systems ROS Statement: Except As Marked, All Systems Reviewed And Found Negative Constitutional: Negative for: Fever ENT: Positive for: Ear Pain, Throat Pain Physical Exam - Reviewed Nursing Documentation Reviewed: Yes Vital Signs Reviewed: Yes - Physical Exam Appears: Positive for: Well, Non-toxic, No Acute Distress Head Exam: Positive for: ATRAUMATIC, NORMOCEPHALIC Skin: Positive for: Normal Color. Negative for: Rash Eye Exam: Positive for: Normal appearance, EOMI, PERRL ENT: Positive for: Other (moderate b/l exudate and edema noted, uvula midline, airway patent) Cardiovascular/Chest: Positive for: Regular Rate, Rhythm Respiratory: Positive for: Normal Breath Sounds. Negative for: Respiratory Distress Extremity: Positive for: Normal ROM. Negative for: Pedal Edema, Deformity Lymphatic: Positive for: Adenopathy (b/l anterior cervical LAD) Neurologic/Psych: Positive for: Alert, Oriented. Negative for: Motor/Sensory Deficits - Laboratory Results Urine POC: Negative - ECG O2 Sat by Pulse Oximetry: 99 (RA) Pulse Ox Interpretation: Normal Medical Decision Making Medical Decision Making: Time: 14:06 Impression: 27 y/o female with sore throat and left ear pain Initial Plan: --Urine --Decadron --Throat culture --Rapid Strep Rapid strep is positive. Patient given initial dose of amoxicillin in ED. Prescription for amoxicillin Diflucan provided, along with prescription for prednisone. Patient was advised to continue with Motrin for pain, to drink plenty of fluids and follow-up with primary doctor in 2-3 days. ~ Scribe Attestation: Documented by Pablo Gonsalez, acting as a scribe for Rochelle Ye PA-C Provider Scribe Attestation: All medical record entries made by the Scribe were at my direction and personally dictated by me. I have reviewed the chart and agree that the record accurately reflects my personal performance of the history, physical exam, medical decision making, and the department course for this patient. I have also personally directed, reviewed, and agree with the discharge instructions and disposition. Disposition - Clinical Impression Clinical Impression: Strep throat - Patient ED Disposition Is Patient to be Admitted: No Counseled Patient/Family Regarding: Studies Performed, Diagnosis, Need For Followup, Rx Given - Disposition Referrals: Dominique Guardado MD [Staff Provider] - Disposition: Routine/Home Disposition Time: 15:05 Condition: STABLE Additional Instructions: Take prescription meds as directed. [id number] Motrin or Advil for pain as needed. Drink plenty of fluids. Follow-up with primary doctor in 2-3 days. Prescriptions: Amoxicillin 875 mg PO BID #14 tab Fluconazole [Diflucan] 150 mg PO ONCE #1 tab Prednisone 50 mg PO DAILY #5 tablet Instructions: Strep Throat (DC) Forms: [employer] ([place])
[2017-11-10] MEDS ORDERED: Dexamethasone 4 mg/1 ml ONE (15:14)
[2017-11-10 15:38] VITALS: BP 138/92; PULSE 71; RESP 14; TEMP 98; O2SAT 100
== END 2017-11-10 15:36 | disposition home or self-care (01) ==
LOC: H.ER 13:51
DX: J02.0 Streptococcal pharyngitis (principal)
CPT/HCPCS: 81025; 87070; 87430; 96372; 99281; J1100